=== PATIENT | female | born 1970 | race Caucasian/White ===

== ENCOUNTER 2023-05-21 12:54 | Day surgery (SDC) | payer BC, SELFPAY ==
[2023-05-21 13:00] VITALS: BP 104/62; PULSE 76; O2SAT 97
--- NOTE | 2023-05-21 13:06 | MM_ITS ---
Patient Name: SHAKIR SAL MR#: [id number] : 1970 Exam Date: 05/21/2023 Ordering Doctor: Non-Staff Physician This report includes an Addendum and supersedes previous reports for this exam. RADIOLOGY REPORT PROCEDURE: MM STEREOTACTIC LOC LT COMPARISON: MG MAMM DX 3D LT CAD, 04/13/2023. INDICATIONS: Calcifications Of Left Breast DESCRIPTION: Following informed consent, digital stereotactic mammographic views were obtained to localize the lesion. Multiple vacuum-assisted core biopsies were obtained. Specimen images were obtained to confirm proper sampling. The location of the biopsy was then marked as indicated below. FINDINGS: RECOMMENDATIONS: SPECIMEN #, LOCATION: 5 core samples; cluster of calcifications within lower-outer quadrant. SPECIMEN IMAGE: 5 core samples; calcifications best seen within core 4. BIOPSY NEEDLE: 10 gauge Revolve(r) vacuum core biopsy needle. MARKER(S) PLACED: A single metallic marker was placed in the appropriate targeted location. MEDICATION: Buffered 1% lidocaine superficial;1% lidocaine with epinephrine deep. COMPLICATIONS: None. PATHOLOGY / LAB: Pending. CONCLUSION: 1. Technically successful biopsy of the breast lesion. 2. Pathology results are pending. An addendum will be added when pathology results are final. Dictated by: Ismael Zapata M.D. on 05/21/2023 at 15:44 Approved by: Ismael Zapata M.D. on 05/21/2023 at 15:46 ADDENDUM: Final pathologic diagnosis: Moderately involuted fibroadenoma with occasional large chunky microcalcifications. Fibrocystic changes of the mostly nonproliferative type. No evidence of malignancy or atypical epithelial hyperplasia identified. DIAGNOSTIC CATEGORY 3--PROBABLY BENIGN FINDING. THE FOLLOWING FINDING(S) HAS A HIGH PROBABILITY OF A BENIGN ETIOLOGY: SHORT TERM FOLLOW-UP DIAGNOSTIC MAMMOGRAM LEFT BREAST IN 6 MONTHS. RECOMMENDATIONS: Dictated by: Ismael Zapata M.D. on 06/05/2023 at 08:44 Approved by: Ismael Zapata M.D. on 06/05/2023 at 08:47
--- NOTE | 2023-05-21 13:06 | MM_ITS ---
Patient Name: SHAKIR SAL MR#: [id number] : 1970 Exam Date: 05/21/2023 Ordering Doctor: Non-Staff Physician This report includes an Addendum and supersedes previous reports for this exam. RADIOLOGY REPORT PROCEDURE: MM POST BIOPSY LT COMPARISON: MM STEREOTACTIC LOC LT, 05/21/2023. MG MAMM DX 3D LT CAD, 04/13/2023. INDICATIONS: Calcifications Of Left Breast BREAST COMPOSITION: Scattered areas fibroglandular density. FINDINGS: BIOPSY MARKER: A metallic marker has been placed in the targeted location within the upper-outer quadrant of the left breast. BREAST FINDINGS: Expected post biopsy findings. RECOMMENDATIONS: Dictated by: Ismael Zapata M.D. on 05/21/2023 at 15:47 Approved by: Ismael Zapata M.D. on 05/21/2023 at 15:47 ADDENDUM: FINDINGS: DIAGNOSTIC CATEGORY 3--PROBABLY BENIGN FINDING. THE FOLLOWING FINDING(S) HAS A HIGH PROBABILITY OF A BENIGN ETIOLOGY: RECOMMENDATIONS: SHORT TERM FOLLOW-UP DIAGNOSTIC MAMMOGRAM LEFT BREAST IN 6 MONTHS. Dictated by: Ismael Zapata M.D. on 06/05/2023 at 08:57 Approved by: Ismael Zapata M.D. on 06/05/2023 at 08:57
[2023-05-21] MEDS: LIDOCAINE HCL 10 ML, SODIUM BICARBONATE 1 MEQ INJ (13:45)
[2023-05-21] MEDS: LIDOCAINE HCL/EPINEPHRINE 10 ML, SODIUM BICARBONATE 1 MEQ INJ (13:45)
--- NOTE | 2023-05-21 14:59 | SUR.PREOP ---
05/12/23 spouse instructed on procedure, date, time, and prep. Instructed him to have her stop her asa x 5 days prior to biopsy.
== END 2023-05-21 14:40 | disposition home or self-care (01) ==
LOC: MAMMO 12:55
PROVIDERS: Radiology Diagnostic Radiology
DX: D24.2 Benign neoplasm of left breast (principal); R92.0 Mammographic microcalcification found on diagnostic imaging of breast
CPT/HCPCS: 19081; 77065; 88305